=== PATIENT | female | born 1995 | race Caucasian/White ===

== ENCOUNTER 2023-02-03 08:36 | Emergency (ER) | payer OTHER ==
[~2023-02-03] VITALS: Ht 157.5 cm; Wt 63.9 kg
[~2023-02-03 08:36] MED LIST: INSLISPI SC; INSUINJ37 SUBCUT; LEVO500T31 PO; MAGN200T4 PO
[2023-02-03 09:20] VITALS: BP 151/91; PULSE 114; RESP 16; TEMP 98.1; O2SAT 97
== END 2023-02-03 10:32 | disposition home or self-care (01) ==
LOC: ER 08:36
DX: L02.511 Cutaneous abscess of right hand (principal); E11.9 Type 2 diabetes mellitus without complications

== ENCOUNTER 2023-02-07 15:31 | Emergency (ER) | payer OTHER ==
[~2023-02-07] VITALS: Ht 157.5 cm; Wt 62.0 kg
[2023-02-07 15:53] VITALS: BP 108/67; PULSE 114; RESP 18; TEMP 99.6; O2SAT 97
== END 2023-02-07 16:12 | disposition home or self-care (01) ==
LOC: ER 15:31
DX: L02.511 Cutaneous abscess of right hand (principal); E11.9 Type 2 diabetes mellitus without complications; Z79.4 Long term (current) use of insulin; Z79.2 Long term (current) use of antibiotics; Z79.899 Other long term (current) drug therapy